=== PATIENT | female | born 1965 | race Caucasian/White ===

== ENCOUNTER → 2018-01-01 10:52 | Outpatient (CLI) | payer BC, SELFPAY ==
--- NOTE | 2018-01-01 | DI.MG.S_ITS ---
BILATERAL DIGITAL SCREENING MAMMOGRAM 3D/2D WITH CAD: 01/01/2018 CLINICAL: Routine screening. Family history of breast cancer. Comparison is made to exams dated: 12/17/2016 breast MRI, 06/22/2016 breast MRI, and 05/25/2016 mammogram - [facility]. The tissue of both breasts is heterogeneously dense. This may lower the sensitivity of mammography. Current study was also evaluated with a Computer Aided Detection (CAD) system. No significant masses, calcifications, or other findings are seen in either breast. There has been no significant interval change. IMPRESSION: NEGATIVE There is no mammographic evidence of malignancy. A 1 year screening mammogram is recommended. This exam was interpreted at Station ID: [id number]. NOTE: For mammograms, a report in lay terms will be sent to the patient. Approximately 15% of breast malignancies will not be visualized mammographically. In the management of a palpable breast mass, a negative mammogram must not discourage biopsy of a clinically suspicious lesion. Electronically Signed By: Hang causey/jairon:01/01/2018 16:59:15 letter sent: Normal Exam ACR BI-RADS Category 1: Negative 3341F
== END ==
PROVIDERS: PCP Physician Assistant; Visit Provider Physician Assistant
DX: Z12.31 Encounter for screening mammogram for malignant neoplasm of breast (principal); Z80.3 Family history of malignant neoplasm of breast
CPT/HCPCS: 77063; 77067

== ENCOUNTER → 2018-06-30 09:23 | Outpatient (CLI) | payer BC, SELFPAY ==
[2018-07-02 15:23] LABS: Fecal Immunochemical Test NOT DETECTED
== END ==
PROVIDERS: PCP Physician Assistant; Visit Provider Physician Assistant
DX: Z12.11 Encounter for screening for malignant neoplasm of colon (principal)
CPT/HCPCS: 82274

== ENCOUNTER → 2018-07-04 13:19 | Outpatient (CLI) | payer BC, SELFPAY ==
[2018-07-04 15:01] LABS: Thyroid Stimulating Hormone 2.76 uIU/mL (0.47-4.68)
== END ==
PROVIDERS: PCP Physician Assistant; Visit Provider Physician Assistant
DX: E03.9 Hypothyroidism, unspecified (principal)
CPT/HCPCS: 36415; 84443

== ENCOUNTER → 2019-04-08 09:27 | Outpatient (CLI) | payer BC, SELFPAY ==
[2019-04-08 10:50] LABS: Alanine Aminotransferase 33 IU/L (9-52); Albumin Globulin Ratio 1.4 (1.0-2.8); Alkaline Phosphatase 81 U/L (38-126); Aspartate Aminotransferase 24 IU/L (14-36); Bilirubin Total 0.5 mg/dL (0.2-1.3); Blood Urea Nitrogen 18 mg/dL (7-17); Calcium 9.7 mg/dL (8.4-10.2); Carbon Dioxide 28 mmol/L (22-32); Chloride 102 mmol/L (98-107); Cholesterol 210 mg/dL (140-199); Estimated Glomerular Filt Rate > 60.0 mL/min (>60); Globulin 2.8 g/dL (1.7-4.1); Glucose 92 mg/dL (70-100); HDL Cholesterol 50 mg/dL (40-60); HEMOLYSIS < 15 (0-50); LDL Cholesterol Calculated 144 mg/dL (<100); Potassium 4.4 mmol/L (3.4-5.1); Sodium 140 mmol/L (137-145); Total Protein 6.8 g/dL (6.3-8.2); Triglycerides 81 mg/dL (35-150)
[2019-04-08 11:18] LABS: Thyroid Stimulating Hormone 2.83 uIU/mL (0.47-4.68)
== END ==
PROVIDERS: PCP Physician Assistant; Visit Provider Physician Assistant
DX: E03.9 Hypothyroidism, unspecified (principal); E78.5 Hyperlipidemia, unspecified
CPT/HCPCS: 36415; 80053; 80061; 84443

== ENCOUNTER → 2019-04-16 09:38 | Outpatient (CLI) | payer BC, SELFPAY ==
[2019-04-16 11:40] LABS: BUN Creatinine Ratio 22.9 (6-22); Blood Urea Nitrogen 16 mg/dL (7-17); Calcium 9.3 mg/dL (8.4-10.2); Carbon Dioxide 29 mmol/L (22-32); Chloride 103 mmol/L (98-107); Estimated Glomerular Filt Rate > 60.0 mL/min (>60); Glucose 87 mg/dL (70-100); HEMOLYSIS < 15 (0-50); Sodium 141 mmol/L (137-145)
[2019-04-16 14:30] LABS: Add Manual Diff / Slide Review NO; Basophils Absolute Auto 100 /uL (0-100); Basophils Percent Auto 1.3 % (0-2); Eosinophils Absolute Auto 100 /uL (0-450); Eosinophils Percent Auto 1.1 % (2-4); Hematocrit 36.9 % (36-46); Hemoglobin 12.5 g/dL (12.0-16.0); Lymphocytes Absolute Auto 2000 /uL (1100-4500); Lymphocytes Percent Auto 33.4 % (25-40); Mean Corpuscular Hemoglobin 30.1 PG (26-34); Mean Corpuscular Volume 88.7 fL (80-100); Monocytes Absolute Auto 400 /uL (0-900); Monocytes Percent Auto 6.3 % (3-14); Neutrophils Absolute Auto 3500 /uL (1500-7000); Neutrophils Percent Auto 57.9 % (50-75); Platelet Count 233 X10^3/uL (150-400); Red Blood Cell Count 4.16 X10^6/uL (4.0-5.2); Red Cell Distribution Width 13.4 % (11.6-14.8); White Blood Cell Count 6.1 X10^3/uL (4.5-11.0)
== END ==
PROVIDERS: PCP Physician Assistant; Visit Provider Physician Assistant
DX: A04.72 Enterocolitis due to Clostridium difficile, not specified as recurrent (principal); R11.2 Nausea with vomiting, unspecified; R19.7 Diarrhea, unspecified
CPT/HCPCS: 36415; 80048; 85025

== ENCOUNTER → 2019-07-10 11:14 | Outpatient (CLI) | payer BC, SELFPAY ==
--- NOTE | 2019-07-10 11:16 | DI.MG.S_ITS ---
BILATERAL DIGITAL SCREENING MAMMOGRAM 3D/2D WITH CAD: 07/10/2019 CLINICAL: Routine screening. Family history of breast cancer. Comparison is made to exams dated: 01/01/2018 mammogram, 05/25/2016 mammogram, and 08/02/2014 mammogram - [facility]. The tissue of both breasts is heterogeneously dense. This may lower the sensitivity of mammography. Current study was also evaluated with a Computer Aided Detection (CAD) system. No significant masses, calcifications, or other findings are seen in either breast. There has been no significant interval change. IMPRESSION: NEGATIVE There is no mammographic evidence of malignancy. A 1 year screening mammogram is recommended. This exam was interpreted at Station ID: [id number]. NOTE: For mammograms, a report in lay terms will be sent to the patient. Approximately 15% of breast malignancies will not be visualized mammographically. In the management of a palpable breast mass, a negative mammogram must not discourage biopsy of a clinically suspicious lesion. Electronically Signed By: Johan sarkar/jairon:07/10/2019 12:57:19 letter sent: Normal Exam ACR BI-RADS Category 1: Negative 3341F
== END ==
PROVIDERS: PCP Physician Assistant; Visit Provider Physician Assistant
DX: Z12.31 Encounter for screening mammogram for malignant neoplasm of breast (principal); Z80.3 Family history of malignant neoplasm of breast
CPT/HCPCS: 77063; 77067

== ENCOUNTER → 2019-07-14 15:21 | Outpatient (CLI) | payer BC, SELFPAY ==
[2019-07-16 17:13] LABS: Fecal Immunochemical Test NOT DETECTED (NOT DETECTED)
== END ==
PROVIDERS: PCP Physician Assistant; Visit Provider Physician Assistant
DX: Z12.9 Encounter for screening for malignant neoplasm, site unspecified (principal)
CPT/HCPCS: 82274

== ENCOUNTER → 2020-04-20 08:16 | Outpatient (CLI) | payer BC, SELFPAY ==
[2020-04-20 09:18] LABS: Add Manual Diff / Slide Review NO; Basophils Absolute Auto 0 /uL (0-100); Basophils Percent Auto 0.7 % (0-2); Eosinophils Absolute Auto 100 /uL (0-450); Eosinophils Percent Auto 1.6 % (2-4); Hemoglobin 13.8 g/dL (12.0-16.0); Lymphocytes Absolute Auto 2000 /uL (1100-4500); Lymphocytes Percent Auto 28.1 % (25-40); Mean Corpuscular HGB Conc 33.7 % (30-36); Mean Corpuscular Hemoglobin 30.1 PG (26-34); Mean Corpuscular Volume 89.2 fL (80-100); Monocytes Absolute Auto 500 /uL (0-900); Monocytes Percent Auto 6.4 % (3-14); Neutrophils Absolute Auto 4600 /uL (1500-7000); Neutrophils Percent Auto 63.2 % (50-75); Platelet Count 259 X10^3/uL (150-400); Red Blood Cell Count 4.59 X10^6/uL (4.0-5.2); White Blood Cell Count 7.3 X10^3/uL (4.5-11.0)
[2020-04-20 09:32] LABS: Appearance Urine UA SL CLOUDY; Bilirubin Urine UA NEGATIVE (NEGATIVE); Color Urine UA YELLOW; Glucose Urine UA NEGATIVE (Negative); Ketones Urine UA NEGATIVE (NEGATIVE); Leukocyte Esterase Urine UA TRACE (NEGATIVE); Nitrite Urine UA NEGATIVE (Negative); Occult Blood Urine UA TRACE-INTACT (Negative); Protein Urine UA NEGATIVE (Negative); Specific Gravity Urine UA 1.025 (1.000-1.035); Urobilinogen Urine UA 0.2 E.U./dL (0.2)
[2020-04-20 09:35] LABS: Alanine Aminotransferase 20 IU/L (<35); Albumin 4.1 g/dL (3.5-5.0); Albumin Globulin Ratio 1.5 (1.0-2.8); Alkaline Phosphatase 93 U/L (38-126); Aspartate Aminotransferase 22 IU/L (14-36); BUN Creatinine Ratio 16.3 (6-22); Bilirubin Total 0.4 mg/dL (0.2-1.3); Blood Urea Nitrogen 15 mg/dL (7-17); Calcium 9.7 mg/dL (8.4-10.2); Carbon Dioxide 30 mmol/L (22-32); Chloride 105 mmol/L (98-107); Cholesterol 230 mg/dL (140-199); Estimated Glomerular Filt Rate > 60.0 mL/min (>60); Globulin 2.8 g/dL (1.7-4.1); Glucose 98 mg/dL (70-100); HDL Cholesterol 46 mg/dL (40-60); HEMOLYSIS < 15 (0-50); LDL Cholesterol Calculated 155 mg/dL (<100); Potassium 4.8 mmol/L (3.4-5.1); Sodium 140 mmol/L (137-145); Total Protein 6.9 g/dL (6.3-8.2); Triglycerides 144 mg/dL (35-150)
[2020-04-20 09:49] LABS: Free T3, Triiodothyronine Free 3.17 pg/mL (2.77-5.27); Free T4, Direct Thyroxine 1.11 ng/dL (0.78-2.19)
[2020-04-20 09:50] LABS: pH Urine UA 6.5 (4.5-8.0)
[2020-04-20 09:51] LABS: Bacteria Urine Few (2-10); Culture Indicated Urine Cult Not Indicated; RBC Urine 1-5/HPF (0-5/HPF); Squamous Epithelial Cell Urine 10-30 /HPF (0-5/HPF); WBC Urine 5-10/HPF (0-5/HPF)
[2020-04-20 10:03] LABS: Thyroid Stimulating Hormone 5.84 uIU/mL (0.47-4.68)
[2020-04-21 05:01] LABS: Creatinine Urine Random 170.2 mg/dL
[2020-04-21 05:06] LABS: Microalbumi Creatinin Ratio Ur 3.5 ug/mg CR (<30); Microalbumin Urine Random 0.6 mg/dL (0-1.6)
== END ==
PROVIDERS: PCP Nurse Practitioner; Referring Provider Nurse Practitioner; Visit Provider Nurse Practitioner
DX: E03.9 Hypothyroidism, unspecified (principal); E78.5 Hyperlipidemia, unspecified; F32.9 Major depressive disorder, single episode, unspecified
CPT/HCPCS: 36415; 80053; 80061; 81001; 82043; 82570; 84439; 84443; 84481; 85025

== ENCOUNTER → 2020-10-21 08:47 | Outpatient (CLI) | payer BC, SELFPAY ==
[2020-10-21] MEDS: COVID-19 VACC, Ad26(JANSSEN)/PF 0.5 ML IM (08:55)
== END ==
PROVIDERS: PCP Nurse Practitioner; Visit Provider Internal Medicine
DX: Z23 Encounter for immunization (principal)
CPT/HCPCS: 0031A; 91303

== ENCOUNTER → 2020-11-04 08:36 | Outpatient (CLI) | payer BC, SELFPAY ==
[2020-11-04 09:49] LABS: Alanine Aminotransferase 19 IU/L (<35); Albumin Globulin Ratio 1.4 (1.0-2.8); Alkaline Phosphatase 90 U/L (38-126); Aspartate Aminotransferase 21 IU/L (14-36); BUN Creatinine Ratio 19.4 (6-22); Bilirubin Total 0.2 mg/dL (0.2-1.3); Blood Urea Nitrogen 18 mg/dL (7-17); Calcium 9.2 mg/dL (8.4-10.2); Carbon Dioxide 29 mmol/L (22-32); Chloride 104 mmol/L (98-107); Cholesterol 224 mg/dL (140-199); Estimated Glomerular Filt Rate > 60.0 mL/min (>60); Globulin 2.8 g/dL (1.7-4.1); Glucose 100 mg/dL (70-100); HDL Cholesterol 41 mg/dL (40-60); HEMOLYSIS < 15 (0-50); LDL Cholesterol Calculated 163 mg/dL (<100); Sodium 139 mmol/L (137-145); Total Protein 6.8 g/dL (6.3-8.2); Triglycerides 102 mg/dL (35-150)
[2020-11-04 10:19] LABS: Thyroid Stimulating Hormone 3.17 uIU/mL (0.47-4.68)
== END ==
PROVIDERS: PCP Nurse Practitioner; Referring Provider Nurse Practitioner; Visit Provider Nurse Practitioner
DX: E03.9 Hypothyroidism, unspecified (principal); E78.5 Hyperlipidemia, unspecified; F33.1 Major depressive disorder, recurrent, moderate
CPT/HCPCS: 36415; 80053; 80061; 84443

== ENCOUNTER → 2021-03-03 09:56 | Outpatient (CLI) | payer BC, SELFPAY ==
[2021-03-03 12:02] LABS: Alanine Aminotransferase 26 IU/L (<35); Albumin Globulin Ratio 1.3 (1.0-2.8); Alkaline Phosphatase 94 U/L (38-126); Aspartate Aminotransferase 25 IU/L (14-36); BUN Creatinine Ratio 15.7 (6-22); Bilirubin Total 0.5 mg/dL (0.2-1.3); Blood Urea Nitrogen 14 mg/dL (7-17); Calcium 9.3 mg/dL (8.4-10.2); Carbon Dioxide 29 mmol/L (22-32); Chloride 104 mmol/L (98-107); Cholesterol 163 mg/dL (140-199); Estimated Glomerular Filt Rate > 60.0 mL/min (>60); Glucose 95 mg/dL (70-100); HDL Cholesterol 46 mg/dL (40-60); HEMOLYSIS < 15 (0-50); LDL Cholesterol Calculated 95 mg/dL (<100); Potassium 4.5 mmol/L (3.4-5.1); Sodium 139 mmol/L (137-145); Triglycerides 111 mg/dL (35-150)
[2021-03-03 13:34] LABS: Thyroid Stimulating Hormone 2.17 uIU/mL (0.47-4.68)
== END ==
PROVIDERS: PCP Nurse Practitioner; Referring Provider Nurse Practitioner; Visit Provider Nurse Practitioner
DX: E03.9 Hypothyroidism, unspecified (principal); E78.5 Hyperlipidemia, unspecified; F33.1 Major depressive disorder, recurrent, moderate; Z79.899 Other long term (current) drug therapy
CPT/HCPCS: 36415; 80053; 80061; 84443

== ENCOUNTER → 2022-03-29 10:08 | Outpatient (CLI) | payer BC, SELFPAY ==
[2022-03-29 11:14] LABS: Add Manual Diff / Slide Review NO; Basophils Absolute Auto 100 /uL (0-100); Basophils Percent Auto 1.3 % (0-2); Eosinophils Absolute Auto 100 /uL (0-450); Eosinophils Percent Auto 2.2 % (2-4); Hemoglobin 13.1 g/dL (12.0-16.0); Lymphocytes Absolute Auto 1700 /uL (1100-4500); Lymphocytes Percent Auto 29.6 % (25-40); Mean Corpuscular HGB Conc 34.5 % (30-36); Mean Corpuscular Hemoglobin 30.3 PG (26-34); Mean Corpuscular Volume 87.8 fL (80-100); Monocytes Absolute Auto 300 /uL (0-900); Neutrophils Absolute Auto 3500 /uL (1500-7000); Neutrophils Percent Auto 61.9 % (50-75); Platelet Count 265 X10^3/uL (150-400); Red Blood Cell Count 4.33 X10^6/uL (4.0-5.2); Red Cell Distribution Width 13.6 % (11.6-14.8); White Blood Cell Count 5.7 X10^3/uL (4.5-11.0)
[2022-03-29 11:57] LABS: Alanine Aminotransferase 29 IU/L (<35); Albumin Globulin Ratio 1.6 (1.0-2.8); Alkaline Phosphatase 91 U/L (38-126); Aspartate Aminotransferase 24 IU/L (14-36); BUN Creatinine Ratio 12.6 (6-22); Bilirubin Total 0.7 mg/dL (0.2-1.3); Blood Urea Nitrogen 11 mg/dL (7-17); Calcium 9.3 mg/dL (8.4-10.2); Carbon Dioxide 28 mmol/L (22-32); Chloride 103 mmol/L (98-107); Cholesterol 167 mg/dL (140-199); Estimated Glomerular Filt Rate > 60 mL/min (>60); Globulin 2.5 g/dL (1.7-4.1); Glucose 91 mg/dL (70-100); HDL Cholesterol 48 mg/dL (40-60); HEMOLYSIS < 15 (0-50); LDL Cholesterol Calculated 103 mg/dL (<100); Potassium 4.4 mmol/L (3.4-5.1); Sodium 138 mmol/L (137-145); Total Protein 6.5 g/dL (6.3-8.2); Triglycerides 78 mg/dL (35-150)
[2022-03-29 12:18] LABS: Thyroid Stimulating Hormone 2.16 uIU/mL (0.47-4.68)
[2022-03-29 16:33] LABS: Creatinine Urine Random 221.1 mg/dL
[2022-03-29 16:35] LABS: Microalbumi Creatinin Ratio Ur 4.9 ug/mg CR (<30); Microalbumin Urine Random 1.1 mg/dL (0-1.6)
[2022-04-02 16:55] LABS: Hep C Virus Ab w/Reflex Quant NEGATIVE s/c (NEGATIVE)
== END ==
PROVIDERS: PCP Nurse Practitioner; Referring Provider Nurse Practitioner; Visit Provider Nurse Practitioner
DX: Z00.00 Encounter for general adult medical examination without abnormal findings (principal); Z11.59 Encounter for screening for other viral diseases
CPT/HCPCS: 36415; 80053; 80061; 82043; 82570; 84443; 85025; 86803

== ENCOUNTER → 2022-03-30 14:26 | Outpatient (CLI) | payer BC, SELFPAY ==
[2022-04-03 21:22] LABS: Fecal Immunochemical Test Positive (Negative)
== END ==
PROVIDERS: PCP Nurse Practitioner; Referring Provider Nurse Practitioner; Visit Provider Nurse Practitioner
DX: Z12.11 Encounter for screening for malignant neoplasm of colon (principal)
CPT/HCPCS: 82274

== ENCOUNTER → 2022-05-02 09:56 | Outpatient (CLI) | payer BC, SELFPAY ==
[2022-05-02 13:14] LABS: COVID19 -Nasal RAPID Negative (Negative)
== END ==
PROVIDERS: PCP Nurse Practitioner; Visit Provider Surgery
DX: Z01.812 Encounter for preprocedural laboratory examination (principal); Z20.822 Contact with and (suspected) exposure to COVID-19
CPT/HCPCS: 87635; C9803

== ENCOUNTER 2022-05-03 06:38 | Day surgery (SDC) | payer BC, SELFPAY ==
--- NOTE | 2022-05-03 | PATH_ITS ---
[facility] Accession Number: [id number] . 01 Material submitted: . PART A: cecum - CECAL POLYPS PART B: colon - TRANSVERSE COLON POLYP PART C: rectum - RECTAL MASS BIOPSIES PART D: sigmoid colon - SIGMOID POLYP PART E: rectum - RECTAL POLYP . 01 Clinical history: . OTHER FECAL ABNORMALITIES . 01 Diagnosis: A. Cecal Polyps, Biopsies: Sessile serrated adenomas. . B. Transverse Colon Polyp, Biopsy: Sessile serrated adenoma. . C. Rectal Mass, Biopsies: Invasive adenocarcinoma, moderately differentiated. Lymphovascular invasion not identified. . D. Sigmoid Colon Polyp, Biopsy: Hyperplastic polyp. . E. Rectal Polyp, Biopsy: Hyperplastic polyp. [facility] 05/08/2022 1141 Local . 01 Comment: Immunohistochemical stains for DNA mismatch repair proteins are pending, and results will be issued in an addendum. . As part of routine lead quality technician, Dr. Almeida has reviewed part C of this case and agrees with the diagnosis of invasive adenocarcinoma. The finding of invasive adenocarcinoma was discussed between Dr. Shahid and Dr. Brarow on 05/08/2022. . 01 Electronically signed: . Edwin Barrow MD, PhD, Pathologist NPI- [id number] . 01 Gross description: . Part A: CECAL POLYPS: Received in formalin are 2 fragment(s) of barfield, soft tissue measuring 0.6 x 0.4 x 0.4 cm to 0.7 x 0.3 x 0.3 cm submitted entirely in 1 cassette(s) Part B: TRANSVERSE COLON POLYP: Received in formalin is 1 fragment(s) of barfield, soft tissue measuring 0.2 x 0.2 x 0.2 cm submitted entirely in 1 cassette(s) Part C: RECTAL MASS BIOPSIES: Received in formalin are 4 fragment(s) of barfield, soft tissue measuring 0.7 x 0.6 x 0.4 cm to 1.1 x 0.6 x 0.6 cm submitted entirely in 2 cassette(s) Part D: SIGMOID POLYP: Received in formalin is 1 fragment(s) of barfield, soft tissue measuring 0.4 x 0.3 x 0.3 cm submitted entirely in 1 cassette(s) Part E: RECTAL POLYP: Received in formalin is 1 fragment(s) of barfield, soft tissue measuring 0.4 x 0.3 x 0.2 cm submitted entirely in 1 cassette(s) /STEVEN 05/04/2022 1857 Local . 01 Pathologist provided ICD-10: D12.0, D12.3, C20 . 01 CPT . 254277, 109902, 539421, 263625, 631445, [id number], U16293 Performed at: 01 [facility] [address] [place] [address] [address] [facility], [place], [place] [id number] MD Hang Almeida MD Phone: [phone]
[2022-05-03 07:04] VITALS: BP 115/72; PULSE 81; RESP 20; TEMP 36.3; O2SAT 98; BMI 30.9
[2022-05-03] MEDS: LACTATED RINGERS 1,000 ML 150 ML IV (07:11)
--- NOTE | 2022-05-03 07:53 | PM.HP.1 ---
History of Present Illness History of Present Illness Date Patient Seen: 05/03/22 Time Patient Seen: 07:53 Chief complaint: [facility] Narrative: Eboni who goes by Mignon is a 57-year-old woman who is never had a colonoscopy before. She did have a recent positive FIT test. She is never observed bright red blood or black stool. She believes she has hemorrhoids. She has no known family history of colon cancer. Patient History Medical History Bilateral shoulder pain C. difficile diarrhea Depression with anxiety Ganglion cyst of finger of right hand Surgical History Status post delivery Status post hysterectomy Status post tubal ligation Family & Social History Family History Father Cerebrovascular accident (CVA), unspecified mechanism Hypothyroidism, unspecified type Type 2 diabetes mellitus, controlled H/O hyperlipidemia Depression Mother Chronic kidney disease, unspecified stage History of myocardial infarction Depression Sister History of breast cancer Social History: household members none Tobacco & Substance use: Smoking Status Former smoker alcohol intake current alcohol intake frequency holiday/special occasion Substance Use Type does not use Meds Home Medications and Allergies Home Medications Medication Instructions Recorded Confirmed Type aspirin 81 mg tablet,delayed 81 mg PO DAILY 04/16/19 05/03/22 History release (Adult Low Dose Aspirin) naltrexone 50 mg tablet See Rx Instructions PO .COMPLEX #1 07/24/21 05/03/22 Rx pkg Synthroid 75 mcg tablet 75 mcg PO BEDTIME #90 tabs 03/19/22 05/03/22 Rx (levothyroxine) atorvastatin 40 mg tablet 40 mg PO BEDTIME #90 tabs 03/19/22 05/03/22 Rx bupropion HCl 300 mg 24 hr tablet, 300 mg PO QAM #90 tabs 03/19/22 05/03/22 Rx extended release duloxetine 20 mg capsule,delayed 40 mg PO BID #360 caps 03/19/22 05/03/22 Rx release Allergies Allergy/AdvReac Type Severity Reaction Status Date / Time iodine [IODINE] Allergy Severe UNKNOWN Verified 05/03/22 06:59 (PATIENT WAS 7 YRS OLD WHEN IT HAPPENED) shellfish derived Allergy Severe ANAPHYLAXIS Verified 05/03/22 06:59 [SHELLFISH DERIVED] CONTRAST MEDIA Allergy Severe (IODINE Uncoded 05/03/22 06:59 RELATED) UNKNOWN - PATIENT WAS 7 YRS OLD AT THE TIME Exam Vital Signs (past 8 hours): - 05/03/22 07:04 Temperature 97.3 F L Pulse Rate 81 Respiratory Rate 20 Blood Pressure 115/72 Pulse Oximetry 98 Oxygen Delivery Method Room Air Oxygen Delivery Method Room Air Const General: No acute distress Resp Effort & Inspection: normal respiratory effort Assessment & Plan Assessment and plan (1) Positive FIT (fecal immunochemical test): Status: Acute Plan 57-year-old woman with a positive fit test was here for colonoscopy. We reviewed the risks and benefits and she would like to proceed. Time Spent With Patient Critical Care time: I spent a total of [] minutes of critical care time on this patient's care today; this time is exclusive of procedural time.
[2022-05-03] MEDS: MIDAZOLAM 5 MG/5 ML VIAL 7 MG IV (07:59)
[2022-05-03] MEDS: fentaNYL 100 MCG/2 ML INJ 125 MCG IV (07:59)
--- NOTE | 2022-05-03 08:52 | P.OP.COLON_ITS ---
Operative Date/Time/Diagnoses Date of procedure: 05/03/22 Time of procedure: 08:53 Pre-op diagnosis: Positive fit test Post-op diagnosis: same Procedure & Clinicians Study performed: Colonoscopy Surgeon: Noah Shahid Procedure Notes Procedure in detail: Surgeon: Noah Shahid MD Procedure: The patient was brought to the endoscopy suite, placed in left lateral decubitus position. The patient was connected to monitoring devices. A time-out was performed. Sedation was administered. Once the patient was adequa tely sedated, a digital rectal exam was performed and was normal. The scope was then inserted and advanced to the cecum where the appendiceal orifice was identified and photographed. The scope was then slowly withdrawn over greater than 6 minutes. The mucosa was thoroughly inspected. There was a 8 mm cecal polyp removed with the cold snare. There was an additional 5 mm cecal polyp removed with cold snare. These were sent together. There was a 5 mm transverse colon polyp removed with a cold snare. There was a large fungating mass in the distal sigmoid or proximal rectum. There was evidence of recent bleeding from the mass. Several large pieces mass were taken with combination of cold snare and hot snare. There was some bleeding after the biopsy which stopped on its own. We then injected tattoo ink just distal and just next to the mass into submucosa. Multiple photographs were taken. There was an additional 8 mm polyp near mass which was removed with a cold snare and sent as ?sigmoid polyp?. There was a 7 mm rectal polyp which was removed with cold snare. The scope was retroflexed in the rectum. No other abnormalities were noted. The scope was straightened and removed. The patient was awakened and brought to recovery. Versed: 7 mg Fentanyl: 125 mcg EBL: 50 mL Findings: 8 mm cecal polyp, 5 mm cecal polyp, 5 mm transverse colon polyp, 8 mm sigmoid polyp, fungating sigmoid/rectal mass, 7 mm rectal polyp Scope withdrawal time: 38 Sedation minutes: 49 Post-procedure Recommendations: Will call with biopsy results Disposition: PACU
[2022-05-03 08:54] VITALS: BP 110/68; PULSE 87; RESP 16; TEMP 37; O2SAT 98
[2022-05-03 08:59] VITALS: BP 108/61; PULSE 86; RESP 16; O2SAT 100
[2022-05-03 09:15] VITALS: BP 112/66; PULSE 76; RESP 16; TEMP 37; O2SAT 98
== END 2022-05-03 09:30 | disposition home or self-care (01) ==
PROVIDERS: PCP Nurse Practitioner; Referring Provider Surgery; Visit Provider Surgery
PROC: 0DJD8ZZ Inspection of Lower Intestinal Tract, Via Natural or Artificial Opening Endoscopic (ICD-10-PCS; CPT 45378; principal; 2022-05-03 07:45)
DX: C20 Malignant neoplasm of rectum (principal); D12.0 Benign neoplasm of cecum; D12.3 Benign neoplasm of transverse colon
CPT/HCPCS: 45381; 45385; 99152; 99153; J2250; J3010

== ENCOUNTER → 2022-05-10 09:10 | Outpatient (CLI) | payer BC, SELFPAY ==
--- NOTE | 2022-05-10 09:12 | DI.CT.S_ITS ---
PROCEDURE: CT CHEST ABD PEL W CON INDICATIONS: colorectal mass path pending TECHNIQUE: After the administration of oral and intravenous contrast, axial sections acquired from the supraclavicular neck to the pubic symphysis. Coronal and sagittal reformats were performed. For radiation dose reduction, the following was used: automated exposure control, adjustment of mA and/or kV according to patient size. COMPARISON:None. FINDINGS: Image quality: Excellent. CHEST: Lower Neck: No enlarged lymph nodes. Thyroid: Within normal limits. Axillae: No enlarged lymph nodes. Chest Wall: Unremarkable. Lungs and Airways: No consolidation or suspicious nodules. Pleura: No pneumothorax or pleural effusions. Heart: Heart size is normal. No pericardial effusion. Thoracic Vessels: The aorta and pulmonary arteries demonstrate normal size. Mediastinum and Lillian: No enlarged lymph nodes. Esophagus: No wall thickening. Mild hiatal hernia. ABDOMEN: Liver: Mild steatosis is present. Gallbladder: Unremarkable. Biliary ducts: Unremarkable. Pancreas: Unremarkable. Spleen: Unremarkable. Adrenal Glands: Unremarkable. Kidneys and Ureters: Unremarkable. Stomach and Bowel: Stomach, small bowel loops, and colon are nonobstructive. There is focal appearance of filling defect within the distal sigmoid seen on series 2, image 97. Peritoneum: No abnormal intraperitoneal fluid. No free air. Ventral Wall: No hernia. Abdominal Nodes: No retroperitoneal or mesenteric adenopathy by size criteria. Vessels: Aorta and inferior vena cava are normal in size. PELVIS: Pelvic Organs: Unremarkable. Bladder: Unremarkable. Pelvic Nodes: No enlarged lymph nodes. Miscellaneous: No inguinal hernias are seen. Bones: Unremarkable. IMPRESSION: 1. Masslike filling defect within the distal colon. Recommend correlation to colonoscopy for location of colonic mass given in clinical history. 2. No evidence of metastatic disease. Dictated by: Katlin Diez M.D. on 05/10/2022 at 13:17 Approved by: Katlin Diez M.D. on 05/10/2022 at 13:23
[2022-05-10 12:00] LABS: Add Manual Diff / Slide Review NO; Basophils Absolute Auto 0 /uL (0-100); Basophils Percent Auto 0.3 % (0-2); Eosinophils Absolute Auto 0 /uL (0-450); Hematocrit 38.7 % (36-46); Hemoglobin 13.2 g/dL (12.0-16.0); Lymphocytes Absolute Auto 600 /uL (1100-4500); Lymphocytes Percent Auto 5.1 % (25-40); Mean Corpuscular HGB Conc 34.2 % (30-36); Mean Corpuscular Hemoglobin 30.2 PG (26-34); Mean Corpuscular Volume 88.3 fL (80-100); Monocytes Absolute Auto 100 /uL (0-900); Neutrophils Absolute Auto 10600 /uL (1500-7000); Neutrophils Percent Auto 93.6 % (50-75); Platelet Count 265 X10^3/uL (150-400); Red Blood Cell Count 4.38 X10^6/uL (4.0-5.2); Red Cell Distribution Width 13.7 % (11.6-14.8); White Blood Cell Count 11.3 X10^3/uL (4.5-11.0)
[2022-05-10 12:29] LABS: Alanine Aminotransferase 22 IU/L (<35); Albumin 4.1 g/dL (3.5-5.0); Albumin Globulin Ratio 1.4 (1.0-2.8); Alkaline Phosphatase 113 U/L (38-126); Aspartate Aminotransferase 22 IU/L (14-36); BUN Creatinine Ratio 14.3 (6-22); Bilirubin Total 0.4 mg/dL (0.2-1.3); Blood Urea Nitrogen 11 mg/dL (7-17); Calcium 9.8 mg/dL (8.4-10.2); Carbon Dioxide 25 mmol/L (22-32); Chloride 102 mmol/L (98-107); Estimated Glomerular Filt Rate > 60 mL/min (>60); Globulin 2.9 g/dL (1.7-4.1); Glucose 120 mg/dL (70-100); HEMOLYSIS < 15 (0-50); Potassium 4.4 mmol/L (3.4-5.1); Sodium 139 mmol/L (137-145)
== END ==
PROVIDERS: PCP Nurse Practitioner; Referring Provider Surgery; Visit Provider Surgery
DX: D49.0 Neoplasm of unspecified behavior of digestive system (principal); R19.5 Other fecal abnormalities; K44.9 Diaphragmatic hernia without obstruction or gangrene; K76.0 Fatty (change of) liver, not elsewhere classified
CPT/HCPCS: 36415; 71260; 74177; 80053; 82378; 85025; Q9967

== ENCOUNTER → 2022-05-30 11:19 | Outpatient (CLI) | payer BC, SELFPAY | PROVIDERS: PCP Nurse Practitioner; Referring Provider Nurse Practitioner; Visit Provider Nurse Practitioner | DX: Z01.810 Encounter for preprocedural cardiovascular examination (principal) | CPT/HCPCS: 93005; 93010 ==

== ENCOUNTER → 2022-09-08 08:44 | Outpatient (CLI) | payer BC, SELFPAY ==
--- NOTE | 2022-09-08 08:45 | DI.MG.S_ITS ---
BILATERAL DIGITAL SCREENING MAMMOGRAM 3D/2D WITH CAD: 09/08/2022 CLINICAL: Routine screening. Family history of breast cancer. Comparison is made to exams dated: 04/20/2020 mammogram - [facility], 07/10/2019 mammogram, and 01/01/2018 mammogram - [facility]. Both breasts are heterogeneously dense, which may obscure small masses (category c / 51-75% glandular tissue). Current study was also evaluated with a Computer Aided Detection (CAD) system. No significant masses, calcifications, or other findings are seen in either breast. There has been no significant interval change. IMPRESSION: NEGATIVE There is no mammographic evidence of malignancy. A 1 year screening mammogram is recommended. Based on Tyrer-Cuzick model (a risk assessment model), the patient's lifetime risk is 25.9% and her 10 year risk is 8.5%. If a patient has an elevated risk, a more comprehensive evaluation should be considered and/or a referral to a genetic counselor. The [place] [employer], [employer], and NCCN Guidelines advise the consideration of Breast MRI as an adjunct to screening mammography in patients whose Lifetime risk to develop breast cancer is 20% or higher. This exam was interpreted at Station ID: [id number]. NOTE: For mammograms, a report in lay terms will be sent to the patient. Approximately 15% of breast malignancies will not be visualized mammographically. In the management of a palpable breast mass, a negative mammogram must not discourage biopsy of a clinically suspicious lesion. Electronically Signed By: Michele joseph/jairon:09/10/2022 11:48:40 letter sent: Normal Exam ACR BI-RADS Category 1: Negative 3341F
== END ==
PROVIDERS: PCP Nurse Practitioner; Referring Provider Nurse Practitioner; Visit Provider Nurse Practitioner
DX: Z12.31 Encounter for screening mammogram for malignant neoplasm of breast (principal); Z80.3 Family history of malignant neoplasm of breast
CPT/HCPCS: 77063; 77067

== ENCOUNTER → 2022-10-12 08:19 | Outpatient (CLI) | payer BC, SELFPAY ==
[2022-10-12 15:22] LABS: Carcinoembryonic Antigen 0.9 ng/mL (0.1-3.0)
== END ==
PROVIDERS: PCP Nurse Practitioner; Referring Provider Nurse Practitioner; Visit Provider Nurse Practitioner
DX: C18.7 Malignant neoplasm of sigmoid colon (principal)
CPT/HCPCS: 36415; 82378

== ENCOUNTER → 2022-11-23 16:28 | Outpatient (CLI) | payer BC, SELFPAY ==
[2022-11-23 18:16] LABS: Follicle Stimulating Hormone 37.8 mIU/mL
[2022-11-23 18:31] LABS: Estradiol, Total 27.4 pg/mL
== END ==
PROVIDERS: PCP Nurse Practitioner
DX: N95.1 Menopausal and female climacteric states (principal)
CPT/HCPCS: 36415; 82670; 83001

== ENCOUNTER → 2023-01-25 10:09 | Outpatient (CLI) | payer BC, SELFPAY ==
[2023-01-25 11:52] LABS: Carcinoembryonic Antigen 0.8 ng/mL (0.1-3.0)
== END ==
PROVIDERS: PCP Nurse Practitioner; Referring Provider Nurse Practitioner; Visit Provider Nurse Practitioner
DX: C18.9 Malignant neoplasm of colon, unspecified (principal); Z12.39 Encounter for other screening for malignant neoplasm of breast
CPT/HCPCS: 36415; 82378

== ENCOUNTER → 2023-02-08 10:41 | Outpatient (CLI) | payer BC, SELFPAY ==
--- NOTE | 2023-02-08 10:41 | DI.MRI.S_ITS ---
BREAST MRI OF BOTH BREASTS: 02/08/2023 CLINICAL: High risk for breast cancer. TECHNIQUE: The patient was placed prone in a dedicated breast imaging coil. Precontrast axial STIR and 3D FLASH without fat saturation sequences were obtained. Both before and after bolus injection of contrast, sequential 1-minute axial 3D FLASH with fat saturation sequences for 3 time points, with subtraction images and maximum intensity projections (MIP's) generated. Delayed sagittal FLASH images with fat saturation were also obtained. Computer-aided detection, including computer algorithm analysis of MRI image data for lesion detection and characterization, pharmacokinetic analysis, with further physician review for interpretation, was performed. COMPARISON: [facility], MR, BILATERAL BREAST W Image quality: Excellent. There is minimal background parenchymal enhancement. There is heterogeneously dense fibroglandular tissue in the bilateral breast. Right breast: There is an oval, enhancing mass in the central right breast approximately 4 cm behind the nipple measuring 0.5 x 0.6 x 0.6 cm in size. This demonstrates delayed phase progressive enhancement kinetics. This may represent prominent background parenchymal enhancement as similar findings were seen on previous MRIs. No abnormal findings correlating with this lesion on comparison mammograms. No evidence for CT text or distortion. Otherwise, no suspicious non-mass enhancement, no other suspicious mass lesions, no axillary or internal mammary chain adenopathy, and no skin/nipple abnormalities. Left breast: No suspicious mass, non-mass enhancement, or architectural distortion. No skin or nipple abnormalities. No axillary or internal mammary chain adenopathy. Miscellaneous: Visualized portions of the chest and upper abdomen appear unremarkable. IMPRESSION: INCOMPLETE: NEEDS ADDITIONAL IMAGING EVALUATION 1. An oval enhancing 0.6 cm mass in the central right breast middle depth likely representing a focus of prominent background parenchymal enhancement as similar findings were noted in the region on previous MRIs. No mammographic correlate identified. Recommend second-look ultrasound to further evaluate. 2. Left breast without MRI evidence for malignancy. COMMENT: The imaging literature indicates that a negative contrast breast MRI examination has a high sensitivity and a moderate specificity for detecting and excluding invasive carcinomas to a detection threshold of 3-5 mm; nonetheless, appropriate clinical and mammographic follow-up are recommended. MRI is not sensitive for detecting DCIS (ductal carcinoma in situ) and may not detect large invasive neoplasms that show only minimal enhancement such as mucinous carcinoma. If there are suspicious calcifications or clinically worrisome palpable masses, then biopsy should still be considered. Invasive neoplasms can be hidden by co-existent and benign enhancement caused by mastitis, hormone therapy effects, radiation therapy, , and recent biopsy or surgery. False positive examinations can occur in a number of circumstances, including breasts that have recently been subject to invasive procedures and those that contain atypical ductal hyperplasia, hormonally stimulated glandular tissue, fat necrosis, or radial scars. This exam was interpreted at Station ID: [id number]. Electronically Signed By: Johan Delgado M.D. aty/:02/08/2023 17:57:32 ACR BI-RADS Category 0: Incomplete 3340F
== END ==
PROVIDERS: PCP Nurse Practitioner; Referring Provider Nurse Practitioner; Visit Provider Nurse Practitioner
DX: N63.15 Unspecified lump in the right breast, overlapping quadrants (principal); Z91.89 Other specified personal risk factors, not elsewhere classified
CPT/HCPCS: 77049; A9579

== ENCOUNTER → 2023-02-28 10:10 | Outpatient (CLI) | payer BC, SELFPAY ==
--- NOTE | 2023-02-28 10:11 | DI.US.S_ITS ---
LIMITED ULTRASOUND OF RIGHT BREAST: 02/28/2023 CLINICAL: Follow up 6 mm mid right breast nodule. Comparison is made to exams dated: 02/08/2023 breast MRI, 09/08/2022 mammogram - [facility], 04/20/2020 mammogram - [facility], 07/10/2019 mammogram, 01/01/2018 mammogram, and 12/17/2016 breast MRI - [facility]. Color flow ultrasound of the right breast retroareolar was performed. Coy scale images of the real-time examination were reviewed. No significant abnormalities were seen sonographically in the right breast. IMPRESSION: NEGATIVE There is no sonographic evidence of malignancy. There is no abnormality seen in the right breast to correspond with the breast MRI finding, which appears stable when compared to the prior MRIs from 2016 and 2015 and is most likely normal fibroglandular tissue. Return to annual high risk screening schedule is recommended with annual screening mammograms and annual breast MRI. Future imaging is recommended as follows: 09/09/2023 screening mammogram. This exam was interpreted at Station ID: [id number]. Electronically Signed By: Javad Quinones M.D. ar/:02/28/2023 15:36:21 letter sent: Normal Exam Ultrasound BI-RADS: 1 Negative
== END ==
PROVIDERS: PCP Nurse Practitioner; Referring Provider Nurse Practitioner; Visit Provider Nurse Practitioner
DX: R92.8 Other abnormal and inconclusive findings on diagnostic imaging of breast (principal); N63.10 Unspecified lump in the right breast, unspecified quadrant; Z91.89 Other specified personal risk factors, not elsewhere classified
CPT/HCPCS: 76642

== ENCOUNTER → 2023-05-02 07:30 | Outpatient (CLI) | payer BC, SELFPAY ==
[2023-05-02 08:24] LABS: Add Manual Diff / Slide Review NO; Basophils Absolute Auto 100 /uL (0-100); Basophils Percent Auto 0.8 % (0-2); Eosinophils Absolute Auto 100 /uL (0-450); Hemoglobin 12.7 g/dL (12.0-16.0); Lymphocytes Absolute Auto 2000 /uL (1100-4500); Lymphocytes Percent Auto 29.8 % (25-40); Mean Corpuscular HGB Conc 34.3 % (30-36); Mean Corpuscular Hemoglobin 30.8 PG (26-34); Mean Corpuscular Volume 89.8 fL (80-100); Monocytes Absolute Auto 500 /uL (0-900); Neutrophils Absolute Auto 4100 /uL (1500-7000); Neutrophils Percent Auto 60.4 % (50-75); Platelet Count 234 X10^3/uL (150-400); Red Blood Cell Count 4.12 X10^6/uL (4.0-5.2); Red Cell Distribution Width 13.5 % (11.6-14.8); White Blood Cell Count 6.7 X10^3/uL (4.5-11.0)
[2023-05-02 08:47] LABS: Alanine Aminotransferase 26 IU/L (<35); Albumin Globulin Ratio 1.6 (1.0-2.8); Alkaline Phosphatase 97 U/L (38-126); Aspartate Aminotransferase 24 IU/L (14-36); BUN Creatinine Ratio 12.1 (6-22); Bilirubin Total 0.6 mg/dL (0.2-1.3); Blood Urea Nitrogen 13 mg/dL (7-17); Calcium 9.7 mg/dL (8.4-10.2); Carbon Dioxide 29 mmol/L (22-32); Chloride 102 mmol/L (98-107); Cholesterol 153 mg/dL (140-199); Estimated Glomerular Filt Rate > 60 mL/min (>60); Globulin 2.5 g/dL (1.7-4.1); Glucose 96 mg/dL (70-100); HDL Cholesterol 48 mg/dL (40-60); HEMOLYSIS < 15 (0-50); LDL Cholesterol Calculated 86 mg/dL (<100); Potassium 3.9 mmol/L (3.4-5.1); Sodium 139 mmol/L (137-145); Total Protein 6.5 g/dL (6.3-8.2); Triglycerides 95 mg/dL (35-150)
[2023-05-02 09:11] LABS: Carcinoembryonic Antigen 0.6 ng/mL (0.1-3.0)
== END ==
PROVIDERS: PCP Nurse Practitioner; Referring Provider Nurse Practitioner; Visit Provider Nurse Practitioner
DX: Z91.89 Other specified personal risk factors, not elsewhere classified (principal); E78.5 Hyperlipidemia, unspecified; E03.9 Hypothyroidism, unspecified
CPT/HCPCS: 36415; 80053; 80061; 82378; 85025

== ENCOUNTER 2023-05-10 06:38 | Day surgery (SDC) | payer BC, SELFPAY ==
[2023-05-10 07:05] VITALS: BMI 28.3
[2023-05-10 07:10] VITALS: BP 108/66; PULSE 105; RESP 17; TEMP 36.4; O2SAT 98
[2023-05-10] MEDS: LACTATED RINGERS 1,000 ML 150 ML IV (07:11)
--- NOTE | 2023-05-10 07:49 | PM.HP.1 ---
History of Present Illness History of Present Illness Date Patient Seen: 05/10/23 Time Patient Seen: 07:[address] [facility] Narrative: sigmoid colon cancer a year ago, s/p robo sigmoid colectomy, no symptoms PFSH Medical History At high risk for breast cancer Bilateral shoulder pain Breast cancer screening, high risk patient C. difficile diarrhea Depression with anxiety Family history of breast cancer in female Ganglion cyst of finger of right hand Surgical History History of colon resection Status post delivery Status post hysterectomy Status post tubal ligation Family History Father Cerebrovascular accident (CVA), unspecified mechanism Hypothyroidism, unspecified type Type 2 diabetes mellitus, controlled H/O hyperlipidemia Depression Mother Chronic kidney disease, unspecified stage History of myocardial infarction Depression Sister History of breast cancer Social History household members: none Smoking Status: Former smoker Tobacco: How many years used: 10 second hand exposure: No alcohol intake: former substance use type: does not use Meds Home Medications and Allergies Home Medications Medication Instructions Recorded Confirmed Type Synthroid 75 mcg tablet 75 mcg PO BEDTIME #90 tabs 09/13/22 05/10/23 Rx (levothyroxine) atorvastatin 40 mg tablet 40 mg PO BEDTIME #90 tabs 12/18/22 05/10/23 Rx duloxetine 20 mg capsule,delayed 40 mg PO BID #360 caps 12/18/22 05/10/23 Rx release biotin 10,000 mcg capsule 10,000 mcg PO DAILY 01/09/23 05/10/23 History phentermine 37.5 mg tablet 18.75 mg PO DAILY #90 tabs 01/10/23 05/10/23 Rx sodium sul 1.479 gram-potas ch See Rx Instructions PO PER PKG DIR 01/21/23 05/10/23 Rx 0.188 gram-magnes sul 0.225 gram #24 tabs tablet (Sutab) naltrexone 50 mg tablet 4.5 mg PO .COMPLEX #90 caps 03/25/23 05/10/23 Rx anastrozole 1 mg tablet 1 mg PO DAILY #90 tabs 04/22/23 05/10/23 Rx bupropion HCl 450 mg 24 hr tablet, 450 mg PO DAILY #90 tabs 04/25/23 05/10/23 Rx extended release Allergies Allergy/AdvReac Type Severity Reaction Status Date / Time iodine [IODINE] Allergy Severe UNKNOWN Verified 05/10/23 07:01 (PATIENT WAS 7 YRS OLD WHEN IT HAPPENED) shellfish derived Allergy Severe ANAPHYLAXIS Verified 05/10/23 07:01 [SHELLFISH DERIVED] CONTRAST MEDIA Allergy Severe (IODINE Uncoded 05/06/23 09:12 RELATED) UNKNOWN - PATIENT WAS 7 YRS OLD AT THE TIME Review of Systems Review of Systems ROS: Yes All systems reviewed with the patient and are negative except as otherwise documented Exam Vital Signs (past 8 hours): - 05/10/23 07:10 Temperature 97.5 F L Pulse Rate 105 H Respiratory Rate 17 Blood Pressure 108/66 Pulse Oximetry 98 Const General: cooperative and healthy appearing Nutritional Appearance: average body habitus HENMT Head: normocephalic and atraumatic Neck Neck: normal visual inspection and trachea midline Chest Chest: normal inspection of the chest Resp Effort & Inspection: normal respiratory effort and able to speak in complete sentences Cardio Rate: regular rate Rhythm: regular rhythm GI Palpation: soft Skin General: turgor normal and pallor Neuro General: patient alert, patient awake and patient oriented x3 Cognition: normal cognition Psych Appearance: grossly normal Mental Status: mental status grossly normal Affect: normal affect Judgment: judgment good Assessment & Plan Assessment & Plan narrative: h/o colon cancer. colonoscopy with anesthesia Time Spent With Patient Time with patient: less than 30 minutes
--- NOTE | 2023-05-10 08:10 | PM.OP.COLON ---
Operative Date/Time/Diagnoses Date of procedure: 05/10/23 Time of procedure: 08:10 Pre-op diagnosis: History of sigmoid colon cancer 1 year ago Post-op diagnosis: same Procedure & Clinicians Study performed: Colonoscopy with anesthesia Same procedure as scheduled: Yes Indications: History of colon cancer Surgeon: Smiley Rand Procedure Notes Procedure in detail: Preop diagnosis: History of colon cancer Postop diagnosis: Same Operative procedure: Colonoscopy with anesthesia Surgeon: Misti Rand MD Findings: No polyps identified. Grade 2 hemorrhoids. No anastomotic recurrence Procedure: Patient placed in a lateral position. Rectal exam performed showing normal tone no masses. Colonoscope inserted into the rectum and advanced to ileocecal valve with minimal difficulty. Insufflation extraction of the scope and the above findings. Retroflex was included in the rectum. Impression: No evidence of polyps or recurrent cancer Plan: Repeat colonoscopy in 3 years Specimen(s): none sent Complications: none Post-procedure Recommendations: Colonoscopy in 3 years Follow up: as needed Disposition: PACU
[2023-05-10 08:15] VITALS: BP 91/74; PULSE 78; RESP 14; TEMP 36.4; O2SAT 96
[2023-05-10 08:19] VITALS: BP 94/62; PULSE 82; RESP 11; O2SAT 96
[2023-05-10 08:25] VITALS: BP 105/61; PULSE 71; RESP 11; O2SAT 97
[2023-05-10 08:27] VITALS: BP 99/62; PULSE 72; RESP 12; TEMP 36.4; O2SAT 98
== END 2023-05-10 08:50 | disposition home or self-care (01) ==
PROVIDERS: PCP Nurse Practitioner; Referring Provider Surgery; Visit Provider Anesthesiology
PROC: 0DJD8ZZ Inspection of Lower Intestinal Tract, Via Natural or Artificial Opening Endoscopic (ICD-10-PCS; CPT 45378; principal; 2023-05-10 07:45)
DX: Z12.11 Encounter for screening for malignant neoplasm of colon (principal); Z85.038 Personal history of other malignant neoplasm of large intestine; K64.1 Second degree hemorrhoids
CPT/HCPCS: 45380; J2250; J3010

== ENCOUNTER → 2023-05-21 08:36 | Outpatient (CLI) | payer BC, SELFPAY ==
[2023-05-21 09:40] LABS: Appearance Urine UA CLEAR; Bilirubin Urine UA NEGATIVE (NEGATIVE); Color Urine UA YELLOW; Glucose Urine UA NEGATIVE (Negative); Ketones Urine UA NEGATIVE (NEGATIVE); Leukocyte Esterase Urine UA 2+ (NEGATIVE); Nitrite Urine UA NEGATIVE (Negative); Occult Blood Urine UA NEGATIVE (Negative); Protein Urine UA NEGATIVE (Negative); Urobilinogen Urine UA 0.2 E.U./dL (0.2)
[2023-05-21 09:41] LABS: BUN Creatinine Ratio 13.3 (6-22); Blood Urea Nitrogen 12 mg/dL (7-17); Calcium 9.8 mg/dL (8.4-10.2); Carbon Dioxide 28 mmol/L (22-32); Chloride 99 mmol/L (98-107); Estimated Glomerular Filt Rate > 60 mL/min (>60); Glucose 96 mg/dL (70-100); HEMOLYSIS < 15 (0-50); Potassium 4.4 mmol/L (3.4-5.1); Sodium 139 mmol/L (137-145)
[2023-05-21 09:51] LABS: pH Urine UA 5.5 (4.5-8.0)
[2023-05-21 09:52] LABS: Bacteria Urine None Seen; Culture Indicated Urine Specimen Cultured; Hyaline Casts Urine 1-5/LPF; RBC Urine None Seen (0-5/HPF); Squamous Epithelial Cell Urine 1-5 /HPF (0-5/HPF); WBC Urine 1-5/HPF (0-5/HPF)
[2023-05-21 10:10] LABS: TSH w/ Reflex to FT4 3.59 uIU/mL (0.47-4.68)
[2023-05-21 10:15] LABS: Creatinine Urine Random 112.5 mg/dL
[2023-05-21 10:20] LABS: Microalbumin Urine Random < 0.6 mg/dL (0-1.6)
== END ==
PROVIDERS: PCP Nurse Practitioner; Referring Provider Family Medicine; Visit Provider Family Medicine
DX: R79.89 Other specified abnormal findings of blood chemistry (principal); E03.9 Hypothyroidism, unspecified
CPT/HCPCS: 36415; 80048; 81001; 82043; 82570; 84443; 87086

== ENCOUNTER → 2023-11-25 08:23 | Outpatient (CLI) | payer OTHER, SELFPAY ==
[2023-11-25 09:11] LABS: Add Manual Diff / Slide Review NO; Basophils Absolute Auto 100 /uL (0-100); Basophils Percent Auto 1.4 % (0-2); Eosinophils Absolute Auto 100 /uL (0-450); Eosinophils Percent Auto 2.1 % (2-4); Hemoglobin 12.9 g/dL (12.0-16.0); Lymphocytes Absolute Auto 1800 /uL (1100-4500); Lymphocytes Percent Auto 27.6 % (25-40); Mean Corpuscular Hemoglobin 30.4 PG (26-34); Mean Corpuscular Volume 89.4 fL (80-100); Monocytes Absolute Auto 500 /uL (0-900); Monocytes Percent Auto 7.2 % (3-14); Neutrophils Absolute Auto 4000 /uL (1500-7000); Neutrophils Percent Auto 61.7 % (50-75); Platelet Count 252 X10^3/uL (150-400); Red Blood Cell Count 4.25 X10^6/uL (4.0-5.2); Red Cell Distribution Width 13.4 % (11.6-14.8); White Blood Cell Count 6.5 X10^3/uL (4.5-11.0)
[2023-11-25 09:33] LABS: Alanine Aminotransferase 42 IU/L (<35); Albumin Globulin Ratio 1.7 (1.0-2.8); Alkaline Phosphatase 96 U/L (38-126); Aspartate Aminotransferase 27 IU/L (14-36); Bilirubin Total 0.6 mg/dL (0.2-1.3); Blood Urea Nitrogen 25 mg/dL (7-17); C-Reactive Protein Quant < 0.5 mg/dL (<1.0); Calcium 9.5 mg/dL (8.4-10.2); Carbon Dioxide 29 mmol/L (22-32); Chloride 106 mmol/L (98-107); Cholesterol 162 mg/dL (140-199); Estimated Glomerular Filt Rate > 60 mL/min (>60); Globulin 2.4 g/dL (1.7-4.1); Glucose 99 mg/dL (70-100); HDL Cholesterol 53 mg/dL (40-60); HEMOLYSIS < 15 (0-50); LDL Cholesterol Calculated 100 mg/dL (<100); Potassium 4.3 mmol/L (3.4-5.1); Sodium 139 mmol/L (137-145); Total Protein 6.4 g/dL (6.3-8.2); Triglycerides 47 mg/dL (35-150)
[2023-11-25 09:47] LABS: Creatinine Urine Random 168.2 mg/dL
[2023-11-25 09:53] LABS: Microalbumin Urine Random < 0.6 mg/dL (0-1.6)
[2023-11-25 09:54] LABS: Carcinoembryonic Antigen 0.8 ng/mL (0.1-3.0)
[2023-11-25 11:24] LABS: Erythrocyte Sedimentation Rate 11 MM/HR (0-20)
[2023-11-28 16:08] LABS: ANA Screen, IFA Negative (.)
== END ==
PROVIDERS: PCP Nurse Practitioner; Referring Provider Nurse Practitioner; Visit Provider Nurse Practitioner
DX: Z00.00 Encounter for general adult medical examination without abnormal findings (principal); C18.9 Malignant neoplasm of colon, unspecified; D89.89 Other specified disorders involving the immune mechanism, not elsewhere classified
CPT/HCPCS: 36415; 80053; 80061; 82043; 82378; 82570; 85025; 85651; 86038; 86140